=== PATIENT | male | born 1995 | race Caucasian/White ===

== ENCOUNTER 2022-05-01 19:15 | Emergency (ER) | payer SELFPAY | END 2022-05-01 19:25 | disposition left against medical advice (07) | LOC: ER 19:16 | DX: S01.21XA Laceration without foreign body of nose, initial encounter (principal); Z53.21 Procedure and treatment not carried out due to patient leaving prior to being seen by health care provider; W45.8XXA Other foreign body or object entering through skin, initial encounter; Y93.9 Activity, unspecified; Y92.9 Unspecified place or not applicable; Y99.9 Unspecified external cause status ==